=== PATIENT | female | born 1950 | race Caucasian/White ===

== ENCOUNTER 2019-03-21 15:17 | Inpatient (IN) | payer MEDICARE, OTHER ==
[~2019-03-21] VITALS: Ht 175.2 cm; Wt 80.7 kg
[2019-03-21] MEDS ORDERED: NEXIUM20 M1 PO (15:56)
[2019-03-21 16:00] VITALS: BP 148/73
[2019-03-21 20:00] VITALS: BP 139/59
[2019-03-22] VITALS: BP 109/53
[2019-03-22 06:19] LABS: BASO # 0.1 10*3/uL (0.0-0.1); BASO % 1.4 % (0.0-1.0); EOS # 0.3 10*3/uL (0.0-0.4); EOS % 6.1 % (1.0-4.0); HEMATOCRIT 43.4 % (37.0-47.0); LYMPH # 2.6 10*3/uL (1.3-4.4); LYMPH % 49.8 % (27.0-41.0); MEAN CELL VOLUME 88.9 fl (81.0-99.0); MEAN CORPUSCULAR HGB 28.7 pg (27.0-31.0); MEAN CORPUSCULAR HGB CONC 32.3 g/dl (33.0-37.0); MONO # 0.4 10*3/uL (0.1-1.0); MONO % 6.8 % (3.0-9.0); NEUT # 1.8 10*3/uL (2.3-7.9); NEUT % 35.7 % (47.0-73.0); PLATELET COUNT AUTOMATED 254 10*3/uL (130-400); RED BLOOD COUNT 4.88 10*6/uL (4.10-5.10); RED CELL DISTRI WIDTH 13.7 % (0-14.5); WHITE BLOOD COUNT 5.1 10*3/uL (4.8-10.8)
[2019-03-22 06:35] LABS: ALBUMIN 3.7 gm/dl (3.1-4.5); BUN 11 mg/dl (7-24); CHLORIDE 112 mmol/L (98-107); CHOLESTEROL 209 mg/dL (<200); CREATININE 0.77 mg/dL (0.55-1.02); POTASSIUM 3.8 mmol/L (3.5-5.1); SGOT/AST 14 IU/L (3-35); SGPT/ALT 32 U/L (12-78); SODIUM 143 mmol/L (136-145); TOTAL PROTEIN 6.8 gm/dL (6.4-8.2); TRIGLYCERIDES 122 mg/dl (<150); VLDL CHOLESTEROL 24 mg/dL (6-40)
[2019-03-22 06:41] LABS: ALKALINE PHOSPHATASE 75 U/L (45-117); FREE T4 1.11 ng/dl (0.76-1.46); HDL CHOLESTEROL 46 mg/dl (40-60); LDL CHOLESTEROL 139 mg/dL (9-159)
[2019-03-22 07:50] LABS: VITAMIN D, 25-HYDROXY 28.9 ng/mL (30-100)
[2019-03-22 08:00] VITALS: BP 112/72
[2019-03-22 12:00] VITALS: BP 129/51
== END 2019-03-22 13:43 | disposition home or self-care (01) | DRG 313 ==
LOC: 4E 15:17
PROVIDERS: ADMIT Internal Medicine
PROC: 4A02XM4 Measurement of Cardiac Total Activity, External Approach (ICD-10-PCS; principal; 2019-03-22)
PROC: 3E073KZ Introduction of Other Diagnostic Substance into Coronary Artery, Percutaneous Approach (ICD-10-PCS; principal; 2019-03-22)
DX: R07.89 Other chest pain (principal); K21.0 Gastro-esophageal reflux disease with esophagitis

== ENCOUNTER 2023-11-09 17:21 | Emergency (ER) | payer MEDICARE ==
[~2023-11-09] VITALS: Ht 175 cm; Wt 93.0 kg
[~2023-11-09 17:21] MED LIST: NEXIUM20 M1 PO
[2023-11-09] MEDS ORDERED: HYDROCODONE-AC1 EAC1 PO (20:17)
[2023-11-16] MEDS ORDERED: ATORVASTATIN CA10 M1 PO (13:35)
[2023-11-17] MEDS ORDERED: ENDOCET 5-3251 EACH PO (11:55)
== END 2023-11-09 20:20 | disposition home or self-care (01) ==
LOC: ED 17:21
DX: S82.64XA Nondisplaced fracture of lateral malleolus of right fibula, initial encounter for closed fracture (principal); K21.9 Gastro-esophageal reflux disease without esophagitis; W10.8XXA Fall (on) (from) other stairs and steps, initial encounter; Y93.89 Activity, other specified; Y92.009 Unspecified place in unspecified non-institutional (private) residence as the place of occurrence of the external cause; Y99.8 Other external cause status

== ENCOUNTER → 2023-11-16 | Outpatient (CLI) | payer MEDICARE ==
[~2023-11-16] MED LIST changes: +ATORVASTATIN CA10 M1 PO; +ENDOCET 5-3251 EACH PO; +HYDROCODONE-AC1 EAC1 PO
== END | disposition home or self-care (01) ==
LOC: US 10:30
PROVIDERS: ATTEND Orthopaedic Surgery
DX: S92.909A Unspecified fracture of unspecified foot, initial encounter for closed fracture (principal); I82.401 Acute embolism and thrombosis of unspecified deep veins of right lower extremity; M79.89 Other specified soft tissue disorders; X58.XXXA Exposure to other specified factors, initial encounter; Y93.89 Activity, other specified; Y92.89 Other specified places as the place of occurrence of the external cause; Y99.8 Other external cause status

== ENCOUNTER → 2023-11-17 | Day surgery (SDC) | payer MEDICARE ==
[~2023-11-17] VITALS: Ht 381 cm; Wt 93.0 kg
[~2023-11-17] MED LIST changes: +Dexamethasone Sodium Phospha 20 MG/5 ML VIAL IV ONE; +Ketamine Hydrochloride 500 MG/10 ML VIAL IV ONE; +Lactated Ringer's Solution 1,000 ML IV ONE; +MAGNESIUM SULFATE 2 GM/50 ML IVB IV ONE; +Midazolam Hydrochloride 2 MG/2 ML VIAL IV ONE; +Ondansetron Hydrochloride 4 MG/2 ML VIAL IV ONE; +PROPOFOL 200 MG/20 ML VIAL IV ONE; +Ropivacaine Hydrochloride 5 MG/ML 20 ML AMP IJ ONE; +SODIUM CHLORIDE 0.9% 500 ML IV ONE; +ceFAZolin sodium/sodium chlor 10 ML IV ONE
[2023-11-17 09:17] LABS: BASO # 0.1 10*3/uL (0.0-0.1); BASO % 1.2 % (0.0-1.0); EOS # 0.2 10*3/uL (0.0-0.4); EOS % 3.1 % (1.0-4.0); HEMATOCRIT 43.5 % (37.0-47.0); LYMPH # 2.2 10*3/uL (1.3-4.4); LYMPH % 29.3 % (27.0-41.0); MEAN CELL VOLUME 88.2 fl (81.0-99.0); MEAN CORPUSCULAR HGB 29.6 pg (27.0-31.0); MEAN CORPUSCULAR HGB CONC 33.6 g/dl (33.0-37.0); MEAN PLATELET VOLUME 9.6 fl (9.6-12.3); MONO # 0.5 10*3/uL (0.1-1.0); MONO % 6.2 % (3.0-9.0); NEUT # 4.6 10*3/uL (2.3-7.9); NEUT % 59.9 % (47.0-73.0); PLATELET COUNT AUTOMATED 377 10*3/uL (130-400); RED BLOOD COUNT 4.93 10*6/uL (4.10-5.10); RED CELL DISTRI WIDTH 13.5 % (0-14.5); WHITE BLOOD COUNT 7.6 10*3/uL (4.8-10.8)
[2023-11-17 09:40] VITALS: BP 173/78
[2023-11-17 10:06] LABS: BUN 9 mg/dl (9-23); CHLORIDE 104 mmol/L (98-107)
[2023-11-17 11:44] VITALS: BP 125/53
[2023-11-17 12:00] VITALS: BP 134/60
[2023-11-17 12:15] VITALS: BP 139/55
[2023-11-17 12:30] VITALS: BP 141/58
[2023-11-17 12:44] VITALS: BP 114/38
== END | disposition home or self-care (01) ==
LOC: SDC 11-16 14:00
PROVIDERS: ATTEND Orthopaedic Surgery
DX: S82.841A Displaced bimalleolar fracture of right lower leg, initial encounter for closed fracture (principal); S93.421A Sprain of deltoid ligament of right ankle, initial encounter; K21.9 Gastro-esophageal reflux disease without esophagitis; E78.00 Pure hypercholesterolemia, unspecified; Z87.891 Personal history of nicotine dependence; Z98.890 Other specified postprocedural states; Z79.891 Long term (current) use of opiate analgesic; Z79.899 Other long term (current) drug therapy; X58.XXXA Exposure to other specified factors, initial encounter; Y93.89 Activity, other specified; Y92.89 Other specified places as the place of occurrence of the external cause; Y99.8 Other external cause status

== ENCOUNTER → 2023-12-05 | Outpatient (CLI) | payer MEDICARE ==
[~2023-12-05] MED LIST changes: -Dexamethasone Sodium Phospha 20 MG/5 ML VIAL IV ONE; -Ketamine Hydrochloride 500 MG/10 ML VIAL IV ONE; -Lactated Ringer's Solution 1,000 ML IV ONE; -MAGNESIUM SULFATE 2 GM/50 ML IVB IV ONE; -Midazolam Hydrochloride 2 MG/2 ML VIAL IV ONE; -Ondansetron Hydrochloride 4 MG/2 ML VIAL IV ONE; -PROPOFOL 200 MG/20 ML VIAL IV ONE; -Ropivacaine Hydrochloride 5 MG/ML 20 ML AMP IJ ONE; -SODIUM CHLORIDE 0.9% 500 ML IV ONE; -ceFAZolin sodium/sodium chlor 10 ML IV ONE
== END | disposition home or self-care (01) ==
LOC: ORTHO 02:32
PROVIDERS: ATTEND Orthopaedic Surgery
DX: S82.841D Displaced bimalleolar fracture of right lower leg, subsequent encounter for closed fracture with routine healing (principal); X58.XXXD Exposure to other specified factors, subsequent encounter

== ENCOUNTER → 2024-01-02 | Outpatient (CLI) | payer MEDICARE | END | disposition home or self-care (01) | LOC: ORTHO 00:25 | PROVIDERS: ATTEND Orthopaedic Surgery | DX: S82.841D Displaced bimalleolar fracture of right lower leg, subsequent encounter for closed fracture with routine healing (principal); M19.071 Primary osteoarthritis, right ankle and foot; M85.871 Other specified disorders of bone density and structure, right ankle and foot; X58.XXXD Exposure to other specified factors, subsequent encounter ==

== ENCOUNTER → 2024-01-20 | Outpatient (CLI) | payer MEDICARE | END | disposition home or self-care (01) | LOC: RAD 09:52 | PROVIDERS: ATTEND Orthopaedic Surgery | DX: Z13.820 Encounter for screening for osteoporosis (principal); M81.0 Age-related osteoporosis without current pathological fracture ==

== ENCOUNTER → 2024-02-13 | Outpatient (CLI) | payer MEDICARE | END | disposition home or self-care (01) | LOC: ORTHO 03:03 | PROVIDERS: ATTEND Orthopaedic Surgery | DX: S82.841D Displaced bimalleolar fracture of right lower leg, subsequent encounter for closed fracture with routine healing (principal); M79.89 Other specified soft tissue disorders; M19.071 Primary osteoarthritis, right ankle and foot; X58.XXXD Exposure to other specified factors, subsequent encounter ==

== ENCOUNTER → 2024-05-16 | Outpatient (CLI) | payer MEDICARE | END | disposition home or self-care (01) | LOC: ORTHO 01:47 | PROVIDERS: ATTEND Orthopaedic Surgery | DX: S82.841D Displaced bimalleolar fracture of right lower leg, subsequent encounter for closed fracture with routine healing (principal); X58.XXXD Exposure to other specified factors, subsequent encounter ==

== ENCOUNTER 2024-05-21 04:54 | Emergency (ER) | payer MEDICARE ==
[~2024-05-21] VITALS: Ht 172.7 cm; Wt 90.7 kg
[2024-05-21] MEDS ORDERED: diphenhydrAMINE hydrochloride 50 MG/ML VIAL IV ONE (05:05)
[2024-05-21] MEDS ORDERED: methylPREDNISolone sod succ 125 MG VIAL IV ONE (05:05)
[2024-05-21] MEDS ORDERED: FAMOTIDINE 50 ML IV ONE (05:05)
[2024-05-21] MEDS ORDERED: SODIUM CHLORIDE 0.9% 1,000 ML IV ONE (05:15)
[2024-05-21] MEDS ORDERED: EPINEPHrine Hydrochloride 1 MG/ML AMP ONE (05:42)
== END 2024-05-21 06:21 | disposition home or self-care (01) ==
LOC: ED 04:54
DX: T78.49XA Other allergy, initial encounter (principal); Z79.899 Other long term (current) drug therapy; X58.XXXA Exposure to other specified factors, initial encounter